=== PATIENT | male | born 1965 | race Two or more races ===

== ENCOUNTER 2022-10-06 05:23 | Day surgery (SDC) | payer OTHER ==
[~2022-10-06] VITALS: Ht 157.5 cm; Wt 72.6 kg
[~2022-10-06 05:23] MED LIST: ADULT LOW DOSE81 M1 PO; LISINOPRIL10 MG PO
== END 2022-10-06 14:20 | disposition home or self-care (01) ==
LOC: CIR.AMB 05:23
PROVIDERS: ATTEND Colon & Rectal Surgery
DX: K60.3 Anal fistula (principal); K64.8 Other hemorrhoids; K92.1 Melena; Z91.013 Allergy to seafood; I10 Essential (primary) hypertension; Z86.16 Personal history of COVID-19; Z20.822 Contact with and (suspected) exposure to COVID-19

== ENCOUNTER 2023-02-23 06:19 | Day surgery (SDC) | payer OTHER | END 2023-02-23 15:40 | disposition home or self-care (01) | LOC: CIR.AMB 06:19 | PROVIDERS: ATTEND Colon & Rectal Surgery | DX: K60.3 Anal fistula (principal); Z91.013 Allergy to seafood; Z20.822 Contact with and (suspected) exposure to COVID-19; I10 Essential (primary) hypertension; K92.1 Melena ==